=== PATIENT | female | born 1970 | race Caucasian/White ===

== ENCOUNTER 2019-12-29 15:31 | Emergency (ER) | payer OTHER ==
[~2019-12-29] VITALS: Ht 172.7 cm; Wt 97.3 kg
--- NOTE | 2019-12-29 16:09 | RAD ---
AP chest. HISTORY: Chest pain, cough AP view was taken of the chest. Lungs are clear. Heart is normal in size. There is no pleural effusion. IMPRESSION: 1. No acute infiltrates. Electronically signed by: Hitesh Miller MD (12/29/2019 4:07 PM) [id number]
[2019-12-29] MEDS ORDERED: LEVO500T59 PO (16:16)
--- NOTE | 2019-12-29 16:17 | PHYS DOC ---
Past History Past Medical History: Asthma, Hypertension Past Surgical History: Additional Smoking Information: quit March/2019 Alcohol Use: Occasionally Adult General Chief Complaint Chief Complaint: COUGH HPI HPI Patient is a 49-year-old female who presents with history of asthma and recurrent sinusitis who presents with cough wheezing and sinus drainage. Symptoms been ongoing for the past several days. Patient reports green sputum production. No fevers chills, sweats. No nausea or vomiting. No other acute symptoms or complaints. Patient contacted her PCP and was instructed to come to the emergency department. [] Review of Systems Review of Systems All other systems were reviewed and found to be within normal limits, except as documented in this note. Physical Exam Physical Exam Constitutional: Well developed, well nourished, no acute distress. [] HENT: Normocephalic, atraumatic, bilateral external ears normal, oropharynx moist, nose normal. [] Eyes: PERRLA, EOMI, conjunctiva normal, no discharge. [] Neck: Normal range of motion, no tenderness, supple. [] Cardiovascular:Heart rate regular rhythm, no murmur [] Lungs & Thorax: Bilateral breath sounds clear [] Abdomen: Bowel sounds normal, soft, no tenderness, no masses, no pulsatile masses. [] Skin: Warm, dry, no erythema, no rash. [] Current Patient Data Vital Signs Vital Signs Date Time Temp Pulse Resp B/P (MAP) Pulse Ox O2 Delivery O2 Flow Rate FiO2 12/29/19 15:47 98.8 80 18 172/111 (131) 98 Room Air EKG EKG [] Radiology/Procedures Radiology/Procedures [Chest x-ray: No acute cardiopulmonary disease on radiology report] Course & Med Decision Making Course & Med Decision Making Pertinent Labs and Imaging studies reviewed. (See chart for details) [Patient's blood pressure 165/91 on recheck. Chest x-ray unremarkable. Will treat for sinusitis with early bronchial pneumonia.] Dragon Disclaimer Dragon Disclaimer This electronic medical record was generated, in whole or in part, using a voice recognition dictation system. Departure Departure: Impression: Primary Impression: Sinusitis Additional Impression: Bronchial pneumonia Disposition: HOME, SELF-CARE Condition: STABLE Referrals: STUART BLAS MD (PCP) Patient Instructions: Bronchitis, [id number], Sinusitis, [id number] Additional Instructions: Take Mucinex for cough and newly prescribed medications as directed. Follow-up with Dr. Blas for further evaluation as needed if symptoms persist. Scripts Levofloxacin (LEVAQUIN) 500 Mg Tablet 1 TAB PO DAILY for 10 Days, #10 TAB 0 Refills Prov: DYLAN BARRAZA DO 12/29/19 Problem Qualifiers DYLAN BARRAZA DO Dec 29, 2019 16:17
[2019-12-29 16:27] VITALS: BP 157/89
== END 2019-12-29 16:29 | disposition home or self-care (01) ==
LOC: ER 15:31
DX: J32.9 Chronic sinusitis, unspecified (principal); J18.0 Bronchopneumonia, unspecified organism; J45.909 Unspecified asthma, uncomplicated; I10 Essential (primary) hypertension; Z87.891 Personal history of nicotine dependence
CPT/HCPCS: 71045; 99283

== ENCOUNTER → 2021-08-03 | Outpatient (CLI) | payer BC ==
[~2021-08-03] MED LIST: LEVO500T59 PO
--- NOTE | 2021-08-03 08:47 | RAD ---
INDICATION : Routine Screening. COMPARISON: None available TECHNIQUE: Standard mammogram screening views of the bilateral breasts were obtained with 3D tomosynt hesis. CAD was utilized. FINDINGS: The breasts are scattered density. No definite suspicious mass. IMPRESSION: BI-RADS Category 1: Negative. The patient was placed into the recall system with a suggested recall date for follow up imaging. Mammography is the most sensitive method for finding small breast cancers, but it does not detect the m all and is not a substitute for careful clinical examination. A negative mammogram does not negate a clinically suspicious finding and should not result in delay in biopsying a clinically suspicious abnormality. Electronically signed by: Bassem Novoa MD (08/03/2021 8:44 AM) [id number]
== END ==
LOC: MAMMO 07:52
PROVIDERS: ATTEND Family Medicine
DX: Z12.31 Encounter for screening mammogram for malignant neoplasm of breast (principal)
CPT/HCPCS: 77063; 77067